=== PATIENT | male | born 1955 | race Caucasian/White ===

== ENCOUNTER 2019-01-09 06:23 | Emergency (ER) | payer OTHER ==
[~2019-01-09] VITALS: Ht 170.2 cm; Wt 61.7 kg
[~2019-01-09 06:23] MED LIST: ATREYE1 SL; CARV12.548 PO; CLOP75TA2 PO; COG1 PO; DEBROX OT; DOCU250C14 PO; HAL5 IM; LISI40TA4 PO; LORA10TA7 PO; MULT PO; NIFE-2 PO; OMEG500C3 PO; OMEP20CA10 PO; POTA10TA15 PO; SIMV40TA2 PO; ZINC56.7 TP; ZONI100C42 PO; [UNRECOGNIZED DRUG - REMARK]
[2019-01-09 06:35] VITALS: BP_SYST 158
[2019-01-09 08:25] VITALS: BP_SYST 129
[2019-01-14] MEDS ORDERED: ACET-73 PO (02:59)
== END 2019-01-09 08:23 | disposition home or self-care (01) ==
LOC: SED 06:23
DX: R09.89 Other specified symptoms and signs involving the circulatory and respiratory systems (principal); R06.02 Shortness of breath; F03.90 Unspecified dementia, unspecified severity, without behavioral disturbance, psychotic disturbance, mood disturbance, and anxiety; I10 Essential (primary) hypertension; Z79.01 Long term (current) use of anticoagulants; Z79.899 Other long term (current) drug therapy; Z88.0 Allergy status to penicillin; Z88.8 Allergy status to other drugs, medicaments and biological substances; Z86.79 Personal history of other diseases of the circulatory system
CPT/HCPCS: 71045; 99283

== ENCOUNTER 2019-08-06 11:46 | Inpatient (IN) | payer OTHER ==
[~2019-08-06] VITALS: Ht 167.6 cm; Wt 55.8 kg
[~2019-08-06 11:46] MED LIST changes: +ACET-73 PO; +ANT30 PO; -ATREYE1 SL; -CARV12.548 PO; -DEBROX OT; -HAL5 IM; -MULT PO; -OMEG500C3 PO; -OMEP20CA10 PO; +OMEP20CA11 PO; -ZINC56.7 TP; -[UNRECOGNIZED DRUG - REMARK]
[2019-08-06 11:47] VITALS: BP_SYST 135
--- NOTE | 2019-08-06 11:47 | NUR ---
Patient to ER bed 01 to gown for evaluation. Side rails up.
--- NOTE | 2019-08-06 11:49 | NUR ---
Patient arrived in the ED accompanied by his sister c/o difficulty swallowing, dragging his left foot, weakness that started yesterday at 1400. Denied any chest pain or shortness of breath. Denied any fevers, nausea, vomiting, or chills. Patient is alert and oriented x2, respirations even and unlabored, non-verbal, ambulating using a wheelchair. VSS, pain level 0/10. Sister at bedside. Informed of wait time. Instructed to notify ED staff for any changes in condition or worsening of symptoms. Patient verbalized understanding.
--- NOTE | 2019-08-06 11:56 | NUR ---
ECG done at bedside as ordered by Dr. Booth. Patient tolerated the procedure well. Report given to
[2019-08-06] MEDS ORDERED: NACL 0.9% 1,000 ML IV ONE (12:05)
--- NOTE | 2019-08-06 12:08 | NUR ---
ER Dr. Booth at bedside examining patient.
--- NOTE | 2019-08-06 12:10 | NUR ---
loader technician at bedside collecting blood specimen as ordered by Dr. Booth. Patient tolerated the procedure well.
[2019-08-06] MEDS ORDERED: ONDANSETRON HCL 4 MG/2 ML VIAL IVP ONE (12:15)
--- NOTE | 2019-08-06 12:27 | NUR ---
Administered Zofran IVP and NS as ordered by Dr. Booth. Patient tolerated the medication well. See eMAR for details.
--- NOTE | 2019-08-06 12:29 | NUR ---
Patient is taken to CT via gurney, in stable condition.
--- NOTE | 2019-08-06 12:40 | NUR ---
Patient is back from CT in stable condition.
[2019-08-06 12:58] LABS: ANION GAP 10 (5-15); CALCIUM 9.4 mg/dL (8.4-11.0); CHLORIDE 105 mmol/L (98-107); CREATININE 1.74 mg/dL (0.55-1.30); GLUCOSE 135 mg/dL (70-99); POTASSIUM 3.5 mmol/L (3.5-5.1); SODIUM SERUM 140 mmol/L (136-145); UREA NITROGEN, BLOOD 30 mg/dL (8-21)
[2019-08-06 13:03] LABS: GFR AFRICAN AMERICAN 51 mL/min (>90)
[2019-08-06 13:04] LABS: BASOPHILS % (AUTO) 0.8 % (0.0-2.0); EOSINOPHILS % (AUTO) 0.8 % (0.0-4.0); HEMATOCRIT 40.7 % (36-54); HEMOGLOBIN 13.6 g/dL (14.0-18.0); LYMPHOCYTES # (AUTO) 0.9 K/uL (1.0-5.5); LYMPHOCYTES % (AUTO) 16.8 % (20.5-51.5); MEAN CORPUSCULAR HEMOGLOBIN 32 pg (27-31); MEAN CORPUSCULAR HGB CONC 33 % (32-36); MEAN CORPUSCULAR VOLUME 95 fL (79.0-98.0); MONOCYTES # (AUTO) 0.9 K/uL (0.0-1.0); MONOCYTES % (AUTO) 16.5 % (1.7-9.3); NEUTROPHILS # (AUTO) 3.5 K/uL (1.8-7.7); NEUTROPHILS % (AUTO) 65.1 % (40.0-70.0); PLATELET COUNT (AUTO) 207 K/uL (130-430); RED BLOOD CELL COUNT(AUTO) 4.28 MIL/uL (4.2-6.2); RED CELL DISTRIBUTION WIDTH 13.4 % (9.0-15.0); WHITE BLOOD COUNT (AUTO) 5.4 K/uL (4.8-10.8)
[2019-08-06 13:05] LABS: PROTHROMBIN TIME 10.3 SECS (9.5-12.5)
[2019-08-06 13:15] LABS: ALANINE AMINOTRANSFERASE 26 U/L (12-78); ALBUMIN 3.6 g/dL (3.4-4.8); AMYLASE 65 U/L (0-100); ASPARTATE AMINOTRANSFERASE 47 U/L (10-37); LIPASE 148 U/L (73-393); TOTAL BILIRUBIN 0.3 mg/dL (0.0-1.0)
[2019-08-06 13:16] LABS: ALCOHOL, BLOOD < 3 mg/dL (<10)
[2019-08-06 13:37] LABS: CKMB RELATIVE INDEX 0.4 (0.0-2.9)
[2019-08-06 14:49] LABS: BILIRUBIN,URINE NEGATIVE (NEGATIVE); COLOR,URINE YELLOW (YELLOW); GLUCOSE,URINE NEGATIVE (NEGATIVE); KETONES,URINE NEGATIVE (NEGATIVE); LEUKOCYTE ESTERASE ,URINE 1+ (NEGATIVE); NITRITE, URINE POSITIVE (NEGATIVE); PROTEIN URINE 2+ (NEGATIVE); UROBILINOGEN,URINE 0.2 (0.2-1.0)
[2019-08-06 14:57] LABS: BLOOD, URINE TRACE (NEGATIVE); CLARITY/URINE HAZY (CLEAR)
[2019-08-06 15:10] LABS: BACTERIA,URINE MANY /HPF (None Seen); RBC,URINE 0-3 /HPF (0-3)
[2019-08-06 15:16] LABS: BARBITURATE, URINE NEGATIVE (NEG <=200); BENZODIAZEPINE, URINE NEGATIVE (NEG <=150); CANNABINOID, URINE NEGATIVE (NEG <=50); COCAINE, URINE NEGATIVE (NEG <=150); METHAMPHETAMINES SCREEN,URINE NEGATIVE (NEG <=500); OPIATE, URINE NEGATIVE (NEG <=100); PHENCYCLIDINE SCREEN,URINE NEGATIVE (NEG <=25); UR TRICYCLIC ANTIDEPRESSANTS NEGATIVE (NEG <=300); URINE AMPHETAMINE NEGATIVE (NEG <=500); URINE METHADONE NEGATIVE (NEG <=200); URINE OXYCODONE SCREEN NEGATIVE (NEG <=100); URINE PROPOXYPHENE SCREEN NEGATIVE (NEG <=300)
[2019-08-06] MEDS ORDERED: LEVOFLOXACIN 500 MG/D5W 100 ML IV ONE (15:30)
--- NOTE | 2019-08-06 16:40 | NUR ---
Received admitting orders from Dr. Viera.
[2019-08-06] MEDS ORDERED: NACL 0.9% 1,000 ML IV SCH (16:45)
--- NOTE | 2019-08-06 17:10 | NUR ---
ADMISSION NOTE Received patient from ER via gurheather, received report from RN. Patient admitted with diagnosis of . Patient oriented to hospital routine, call light, toileting and safety-patient verbalized understanding.
[2019-08-06 17:22] VITALS: BP_SYST 125
[2019-08-06 18:00] VITALS: BP_SYST 125
--- NOTE | 2019-08-06 18:00 | NUR ---
RN NOTE PT AWAKE, NON VERBAL BUT PT IS SMILING. NO ACUTE DISTRESS NOTED. IVF INFUSING WELL. CALL LIGHT WITHIN REACH, BED IN LOW AND LOCKED POSITION WITH BED ALARM ON.
--- NOTE | 2019-08-06 18:05 | NUR ---
Patient will be admitted to care of Dr. Viera. Admitted to Tele unit. Will go to room 135. Belongings list completed. Complete and up to date summary report printed. SBAR report given to OLE Thomas at bedside with opportunity for questions.
--- NOTE | 2019-08-06 18:46 | NUR ---
Swallow Eval Called Maegan speech therapist, dialed for ordered swallow eval. left voice message.
--- NOTE | 2019-08-06 18:51 | NUR ---
CLOSING NOTE PT RESTING QUIETLY, NO ACUTE DISTRESS NOTED, BREATHING EVEN AND UNLABORED. IVF INFUSING WELL. CALL LIGHT WITHIN REACH, BED IN LOW AND LOCKED POSITION WITH BED ALARM ON. ALL NEEDS MET THROUGHOUT SHIFT. WILL CONTINUE TO MONITOR UNTIL PT CARE IS ENDORSED TO PAPER SLITTER RN.
--- NOTE | 2019-08-06 19:15 | NUR ---
INITIAL NOTES: pt is awake, alert, confused, non verbal. no pain. not distress. pt vital sign are with in normal limit. assess pt. no skin breakdown. left sided weakness and paralysis due to stroke. pt is incontinent of bowel and bladder. ivf infusing to right forearm gauge 20- no sign of infiltration. clean pt and diaper remove and change to chux. reposition. needs attended. side rails up. low bed position. bed alarm on. call light in reach. will monitor.
[2019-08-06 20:00] VITALS: BP_SYST 140
--- NOTE | 2019-08-06 22:09 | NUR ---
pt's sister estefani came in to give the anti seizure medication. pt swallow medication ok. no sign of aspiration. needs attended at this time will monitor.
[2019-08-06] MEDS ORDERED: ACETAMINOPHEN 500 MG TABLET PO PRN (22:45)
[2019-08-06] MEDS: D5LR 1,000 ML IV SCH (23:15)
[2019-08-06] MEDS: PANTOPRAZOLE SODIUM 40 MG/VIAL (PROTONIX) IVP SCH (23:16)
[2019-08-06] MEDS ORDERED: PANTOPRAZOLE SODIUM 40 MG/VIAL (PROTONIX) ONE (23:19)
[2019-08-06 23:34] VITALS: BP_SYST 145
[2019-08-06] MEDS: TAMSULOSIN HCL 0.4 MG CAP PO SCH (23:43)
[2019-08-06] MEDS ORDERED: TAMSULOSIN HCL 0.4 MG CAP ONE (23:56)
--- NOTE | 2019-08-07 | NUR ---
pt call and ask for pudding. pt ate the whoel cup of pudding. no sign of aspiration. needs attended. safety on. will monitor.
[2019-08-07 01:21] VITALS: BP_SYST 128
[2019-08-07 01:24] VITALS: BP_SYST 122
--- NOTE | 2019-08-07 02:00 | NUR ---
sleeping, quietly, no distress, no pain. stable. ivf infusing well. side rails up. low bed position will monitor.
--- NOTE | 2019-08-07 03:40 | NUR ---
received call [facility]. dasilva, pt is positive for influenza a, negative for b, isolate pt and page dr. gilman.
--- NOTE | 2019-08-07 04:20 | NUR ---
PT IS AWAKE, ALERT. WATCHING TV. NON VERBAL. IVF INFUSING WELL. NO SOB. NOT DISTRESS, ON DROPLET ISOLATION. NEEDS ATTENDED. CALL LIGHT IN REACH. SIDE RAILS UP. LOW BED POSITION. BED ALARM ON. WILL MONITOR.
--- NOTE | 2019-08-07 05:50 | NUR ---
pt is awake, alert. not distress, no pain. ivf infusing well. clean pt and chux change, reposition with help of caitie padilla. droplet isolation. side rails up. bed alarm on. call light in reach. will monitor
[2019-08-07] MEDS: OSELTAMIVIR PHOSPHATE 75 MG CAPSULE PO SCH ×2 (06:41→22:00)
[2019-08-07 07:12] LABS: BASOPHILS % (AUTO) 0.6 % (0.0-2.0); EOSINOPHILS # (AUTO) 0.1 K/uL (0.0-0.4); EOSINOPHILS % (AUTO) 2.7 % (0.0-4.0); HEMATOCRIT 34.6 % (36-54); HEMOGLOBIN 11.8 g/dL (14.0-18.0); LYMPHOCYTES % (AUTO) 22.2 % (20.5-51.5); MEAN CORPUSCULAR HEMOGLOBIN 32 pg (27-31); MEAN CORPUSCULAR HGB CONC 34 % (32-36); MEAN CORPUSCULAR VOLUME 95 fL (79.0-98.0); MONOCYTES # (AUTO) 0.8 K/uL (0.0-1.0); MONOCYTES % (AUTO) 16.8 % (1.7-9.3); NEUTROPHILS # (AUTO) 2.7 K/uL (1.8-7.7); NEUTROPHILS % (AUTO) 57.7 % (40.0-70.0); PLATELET COUNT (AUTO) 185 K/uL (130-430); RED BLOOD CELL COUNT(AUTO) 3.64 MIL/uL (4.2-6.2); WHITE BLOOD COUNT (AUTO) 4.6 K/uL (4.8-10.8)
--- NOTE | 2019-08-07 07:30 | NUR ---
closing: pt is resting, no distress, no pain. no sob. ivf infusing well. clean and dry. stable. needs attended the whole shift. maintained on contact isolation. bedside report given to am rn.
[2019-08-07 07:40] LABS: ALBUMIN 2.9 g/dL (3.4-4.8); CALCIUM 8.3 mg/dL (8.4-11.0); CREATININE 1.24 mg/dL (0.55-1.30); PHOSPHORUS 3.2 mg/dL (2.7-4.5); POTASSIUM 3.3 mmol/L (3.5-5.1); TOTAL BILIRUBIN 0.3 mg/dL (0.0-1.0)
[2019-08-07] MEDS ORDERED: PANTOPRAZOLE SODIUM 40 MG TAB PO SCH (09:00)
[2019-08-07] MEDS ORDERED: LISINOPRIL 20 MG TABLET PO SCH (09:00)
[2019-08-07] MEDS ORDERED: POTASSIUM CHLORIDE 10 MEQ TAB.PRT.SR PO SCH (09:00)
[2019-08-07 09:03] LABS: CKMB RELATIVE INDEX 0.3 (0.0-2.9); CREATINE KINASE MB 3.2 ng/mL (0-3.6)
--- NOTE | 2019-08-07 09:46 | NUR ---
Nutrition Update Artemio Scale 17 noted. Pt admitted for ALOC, Dehydration Diet: Pureed BMI: 19.9 kg/m2 RD to follow per nutrition care standards.
[2019-08-07] MEDS: PANTOPRAZOLE SODIUM 40 MG/VIAL (PROTONIX) IVP SCH ×2 (09:54→21:57)
[2019-08-07] MEDS: MAG-AL HYDROX/SIMETH 30 ML UDC PO SCH ×3 (09:54→21:59)
[2019-08-07] MEDS: D5LR 1,000 ML IV SCH ×2 (09:54→20:36)
[2019-08-07] MEDS: LORATADINE 10 MG TABLET PO SCH (09:55)
[2019-08-07] MEDS: NIFEDIPINE 30 MG TAB.ER.24 PO SCH (09:55)
[2019-08-07] MEDS: CLOPIDOGREL BISULFATE 75 MG TABLET PO SCH (09:56)
[2019-08-07] MEDS: DOCUSATE SODIUM 250 MG CAPSULE PO SCH ×2 (09:56→22:00)
[2019-08-07] MEDS: BENZTROPINE MESYLATE 1 MG TABLET PO SCH ×2 (09:56→21:58)
[2019-08-07] MEDS: TAMSULOSIN HCL 0.4 MG CAP PO SCH ×2 (09:56→21:58)
[2019-08-07 13:14] VITALS: BP_SYST 141
--- NOTE | 2019-08-07 13:46 | NUR ---
DR HAIDER IN AND INFORMED THAT THE K LEVEL 3.3. WILL CHECK ON THE LABS. MEDICATIONS TAKEN ONE AT A TIME WITH APPLE SAUCE, TOLERATED WELL
[2019-08-07] MEDS ORDERED: POTASSIUM CHLORIDE 20 MEQ TAB.PRT.SR PO ONE (15:00)
[2019-08-07] MEDS: LEVOFLOXACIN 500 MG/D5W 100 ML IV SCH ×2 (15:00→15:52)
[2019-08-07] MEDS ORDERED: LEVOFLOXACIN 250 MG/D5W 50 ML IV SCH (15:00)
[2019-08-07] MEDS: POTASSIUM CHLORIDE 20 MEQ TAB.PRT.SR PO ONE ×2 (15:11→15:16)
[2019-08-07 16:48] VITALS: BP_SYST 137
--- NOTE | 2019-08-07 19:20 | NUR ---
INITIAL NOTES: pt is awake, alert, confused, pt is able to follow simple commands. no pain. not distress. pt vital sign are with in normal limit. pt is incontinent of bowel and bladder. ivf infusing to right forearm gauge 20- no sign of infiltration. pt is soiled with urine. clean pt, bed bath done. change linen, gown and chux. reposition. needs attended. side rails up. low bed position. bed alarm on. maintained on droplet isolation. call light in reach. will monitor.
[2019-08-07 20:03] VITALS: BP_SYST 144
[2019-08-07] MEDS: ZONISAMIDE 100 MG CAPSULE PO SCH (21:58)
[2019-08-07] MEDS: SIMVASTATIN 40 MG TABLET PO SCH (21:58)
[2019-08-07] MEDS: MIRTAZAPINE 15 MG TABLET PO SCH (22:00)
--- NOTE | 2019-08-07 22:04 | NUR ---
awake, alert. watching tv. stable, isolation. needs attended. call light with the pt.
--- NOTE | 2019-08-08 | NUR ---
still awake, alert. watching tv. stable, isolation. needs attended. call light with the pt. bed alarm on . low bed position side rails up.
[2019-08-08 01:28] VITALS: BP_SYST 149
--- NOTE | 2019-08-08 02:03 | NUR ---
sleeping, no sob. stable, clean and dry.
--- NOTE | 2019-08-08 03:51 | NUR ---
pt call and when ask, pt wants water. needs attended, stable. call light in reach. isolation.
[2019-08-08] MEDS: D5LR 1,000 ML IV SCH ×2 (05:01→17:30)
--- NOTE | 2019-08-08 05:45 | NUR ---
pt is awake, alert. soiled with urine, clean pt, change chux and gown, reposition. pt tolerate well. needs attended, call light in reach, side rails up. low bed position, bed alarm on, maintained on isolation.
--- NOTE | 2019-08-08 07:15 | NUR ---
closing: pt is awake, alert. no distress, no pain. no sob. ivf infusing well. clean and dry. stable. needs attended the whole shift. maintained on droplet isolation.call light in reach. bedside report given to am rn.
--- NOTE | 2019-08-08 07:21 | NUR ---
Opening Note received bedside SBAR report from night shift supervisor RN, patient resting in bed, respirations even and unlabored on room air, no acute distress noted, patient denies any pain, educated patient on use of call light and asked to call for assistance, patient verbalized understanding, call light in reach, bed in low and locked position, bed alarm on.
--- NOTE | 2019-08-08 07:40 | NUR ---
IV Catheter IV catheter to right forearm found in bed, catheter intact, no bleeding, educated patient on purpose and procedure for IV catheter placement, IV catheter placed to right wrist, 22G, flushes easily with blood return, patient tolerated well.
[2019-08-08 07:46] LABS: BASOPHILS % (AUTO) 0.8 % (0.0-2.0); EOSINOPHILS # (AUTO) 0.3 K/uL (0.0-0.4); EOSINOPHILS % (AUTO) 6.6 % (0.0-4.0); HEMATOCRIT 37.7 % (36-54); HEMOGLOBIN 12.9 g/dL (14.0-18.0); LYMPHOCYTES # (AUTO) 1.2 K/uL (1.0-5.5); LYMPHOCYTES % (AUTO) 22.5 % (20.5-51.5); MEAN CORPUSCULAR HEMOGLOBIN 32 pg (27-31); MEAN CORPUSCULAR HGB CONC 34 % (32-36); MEAN CORPUSCULAR VOLUME 94 fL (79.0-98.0); MONOCYTES # (AUTO) 0.7 K/uL (0.0-1.0); MONOCYTES % (AUTO) 14.1 % (1.7-9.3); NEUTROPHILS # (AUTO) 2.9 K/uL (1.8-7.7); PLATELET COUNT (AUTO) 219 K/uL (130-430); RED BLOOD CELL COUNT(AUTO) 4.02 MIL/uL (4.2-6.2); WHITE BLOOD COUNT (AUTO) 5.2 K/uL (4.8-10.8)
[2019-08-08 08:00] VITALS: BP_SYST 139
[2019-08-08 08:01] LABS: CALCIUM 8.6 mg/dL (8.4-11.0); CREATININE 1.19 mg/dL (0.55-1.30)
[2019-08-08 08:48] LABS: CKMB RELATIVE INDEX 0.3 (0.0-2.9); CREATINE KINASE MB 1.6 ng/mL (0-3.6)
[2019-08-08] MEDS: OSELTAMIVIR PHOSPHATE 75 MG CAPSULE PO SCH ×2 (09:16→22:06)
[2019-08-08] MEDS: MAG-AL HYDROX/SIMETH 30 ML UDC PO SCH ×3 (09:16→22:06)
[2019-08-08] MEDS: PANTOPRAZOLE SODIUM 40 MG/VIAL (PROTONIX) IVP SCH ×2 (09:16→22:04)
[2019-08-08] MEDS: TAMSULOSIN HCL 0.4 MG CAP PO SCH ×2 (09:16→22:05)
[2019-08-08] MEDS: CLOPIDOGREL BISULFATE 75 MG TABLET PO SCH (09:16)
[2019-08-08] MEDS: NIFEDIPINE 30 MG TAB.ER.24 PO SCH (09:17)
[2019-08-08] MEDS: BENZTROPINE MESYLATE 1 MG TABLET PO SCH ×2 (09:17→22:05)
[2019-08-08] MEDS: DOCUSATE SODIUM 250 MG CAPSULE PO SCH ×2 (09:17→22:06)
[2019-08-08] MEDS: LORATADINE 10 MG TABLET PO SCH (09:17)
--- NOTE | 2019-08-08 09:38 | NUR ---
RN Rounds patient resting in bed, respirations even and unlabored on room air, no acute distress noted, patient denies any pain.
[2019-08-08] MEDS ORDERED: POTASSIUM CHLORIDE 20 MEQ TAB.PRT.SR PO ONE (11:30)
--- NOTE | 2019-08-08 12:15 | NUR ---
Physician Rounds Dr. Viera at bedside examining patient.
--- NOTE | 2019-08-08 12:23 | NUR ---
Swallow Evaluation spoke with ST Issa, carol Issa swallow evaluation was completed and she recommends continuing patient on pureed diet, carol Issa she informed Dr. Viera.
--- NOTE | 2019-08-08 12:24 | NUR ---
S.T. SWALLOW EVAL SWALLOW EVAL COMPLETED. PT PRESENTS W/ GENERALLY FUNCTIONAL OROPHARYNGEAL SWALLOW FOR PUREE AND THIN/THICK LIQUIDS. NO S/S OF ASPIRATION. REC: CONTINUE PUREE DIET. THIN LIQUIDS OK. DR. HAIDER AND NURSE NANI NOTIFIED.
[2019-08-08 12:39] VITALS: BP_SYST 143
--- NOTE | 2019-08-08 13:29 | NUR ---
Dietitian Recommendations *Continue pureed diet per STRIPPER AND OPAQUER APPRENTICE and MD. *Adhere to food preferences per family request. Please see Nutritional Assessment for details. ELIGIO BERKOWITZ
--- NOTE | 2019-08-08 14:05 | NUR ---
Bedside commode patient requesting to use bedside commode, assisted patient to bedside commode, patient did not void or have BM, patients sister Leydi at bedside.
[2019-08-08] MEDS: LEVOFLOXACIN 500 MG/D5W 100 ML IV SCH (14:12)
--- NOTE | 2019-08-08 14:49 | NUR ---
SS NOTES/DCP: ICE PULLER was referred by CM to see patient for DCP and SSA. ICE PULLER spoke with sister, Leydi at bedside. Pt was in the bathroom at this time. Per Leydi, pt has been dependent with family for 12 years now. Pt is a and was diagnosed with PTSD and had 4 strokes in the past. Pt lives in between his two sisters, Dulce and Leydi. Pt is semi independent; able to feed self, clean self and walk with assistance. Pt utilizes a walker to ambulate short distances but owns a wc, shower chair and has bathroom bars. Pt primarily lives in a one tera home with 1 step to get to the front door. Pt's source of income is through the [employer] and has a conservator for his finances named Constantino. Per sister, pt goes to [facility] to get Haldol shot and therapy 1x/month. Pt has a history of substance use 30 years ago. Pt's PCP through the [employer] is Dr. Madhavi Sinclair, p: [phone], f: [phone] and is well-connected with [employer] [facility]. Pt has an advanced directive and Dulce Sarkar is his surrogate decision maker. Per Leydi, they would rather take the patient home and if HHS is indicated, they will go through his PCP for the referral. NINA Valentin informed of intent. No further SS needs identified but will remain available when needed.
--- NOTE | 2019-08-08 15:37 | NUR ---
Physical Therapy physical therapy at bedside working with patient, patient tolerating well.
[2019-08-08 16:31] VITALS: BP_SYST 143
--- NOTE | 2019-08-08 17:19 | NUR ---
RN Rounds patient resting in bed, respirations even and unlabored on room air, no acute distress noted, patient denies any pain.
--- NOTE | 2019-08-08 19:16 | NUR ---
Closing Note bedside SBAR report given to Juli RN, patient resting in bed, respirations even and unlabored on room air, no acute distress noted, educated patient on use of call light and asked to call for assistance, call light in reach, bed in low and locked position, bed alarm on, care endorsed to electric milkers installer RN.
--- NOTE | 2019-08-08 19:20 | NUR ---
OPENING NOTES RECEIVE REPORT FROM MORNING SHIFT NURSE. PATIENT AOX1. CALM AND COOPERATIVE. NO SIGNS OF RESPIRATORY DISTRESS NOTED. DENIES PAIN AND DISCOMFORT AT THIS TIME. SCD's OPERATING WELL. ON DROPLET PRECAUTION. IVF INFUSING WELL, PATENCY NOTED. BED LOCKED AND IN LOWEST POSITION. CALL LIGHT WITH IN REACH, PATIENT EDUCATED OT USE CALL LIGHT WHEN ASSISTANCE IS NEEDED, PATIENT UNABLE TO VERBALIZED UNDERSTANDING. PATIENT IS CONFUSED. SAFETY PRECAUTIONS IN PLACE. BED ALARM ON. WILL CONTINUE TO MONITOR PATIENT.
[2019-08-08 20:00] VITALS: BP_SYST 151
[2019-08-08] MEDS: SIMVASTATIN 40 MG TABLET PO SCH (22:04)
[2019-08-08] MEDS: MIRTAZAPINE 15 MG TABLET PO SCH (22:06)
[2019-08-08] MEDS: POTASSIUM CHLORIDE 20 MEQ TAB.PRT.SR PO SCH (22:06)
--- NOTE | 2019-08-08 22:06 | NUR ---
MED PASS Due medication given at this time, patient tolerated well. No signs of respiratory distress and discomfort noted. safety precautions in place. needs attended. Will continue to monitor patient.
[2019-08-08] MEDS: ZONISAMIDE 100 MG CAPSULE PO SCH (22:07)
--- NOTE | 2019-08-08 23:45 | NUR ---
RN ROUNDS PATIENT IS AWAKE, LYING QUIETLY IN BED. NO SIGNS OF RESPIRATORY DISTRESS AND DISCOMFORT NOTED. BREATHING EVEN AND UNLABORED. IVF INFUSING WELL, PATENCY NOTED. SAFETY PRECAUTIONS IN PLACE. WILL CONTINUE TO MONITOR PATIENT
[2019-08-09 00:25] VITALS: BP_SYST 153
--- NOTE | 2019-08-09 02:30 | NUR ---
RN ROUNDS PATIENT IS ASLEEP AT THIS TIME. NO SIGNS OF RESPIRATORY DISTRESS AND DISCOMFORT NOTED. BREATHING EVEN AND UNLABORED. SAFETY PRECAUTIONS IN PLACE. WILL CONTINUE TO MONITOR PATIENT
--- NOTE | 2019-08-09 04:57 | NUR ---
RN ROUNDS PATIENT IS ASLEEP AT THIS TIME. NO SIGNS OF RESPIRATORY DISTRESS AND DISCOMFORT NOTED. BREATHING EVEN AND UNLABORED. IVF INFUSING WELL, PATENCY NOTED. SAFETY PRECAUTIONS IN PLACE. WILL CONTINUE TO MONITOR PATIENT
--- NOTE | 2019-08-09 06:46 | NUR ---
CLOSING NOTES PATIENT ASLEEP AT THIS TIME. NO SIGNS OF RESPIRATORY DISTRESS AND DISCOMFORT NOTED. ON DROPLET PRECAUTION MAINTAINED THROUGHOUT THE SHIFT. IVF INFUSING WELL, PATENCY NOTED. BED LOCKED AND IN LOWEST POSITION. CALL LIGHT WITH IN REACH. SAFETY PRECAUTIONS IN PLACE. BED ALARM ON. BED LOCKED AND IN LOWEST POSITION. ALL NEEDS MET THROUGHOUT THE SHIFT. WILL CONTINUE TO MONITOR PATIENT UNTIL ENDORSE TO ONCOMING SHIFT NURSE FOR CONTINUITY OF CARE.
[2019-08-09 07:19] LABS: BASOPHILS % (AUTO) 0.5 % (0.0-2.0); CALCIUM 8.6 mg/dL (8.4-11.0); CREATININE 1.19 mg/dL (0.55-1.30); EOSINOPHILS # (AUTO) 0.3 K/uL (0.0-0.4); EOSINOPHILS % (AUTO) 5.9 % (0.0-4.0); HEMATOCRIT 35.5 % (36-54); HEMOGLOBIN 12.3 g/dL (14.0-18.0); LYMPHOCYTES # (AUTO) 1.2 K/uL (1.0-5.5); LYMPHOCYTES % (AUTO) 24.5 % (20.5-51.5); MEAN CORPUSCULAR HEMOGLOBIN 32 pg (27-31); MEAN CORPUSCULAR HGB CONC 35 % (32-36); MEAN CORPUSCULAR VOLUME 93 fL (79.0-98.0); MONOCYTES # (AUTO) 0.6 K/uL (0.0-1.0); MONOCYTES % (AUTO) 13.2 % (1.7-9.3); NEUTROPHILS # (AUTO) 2.7 K/uL (1.8-7.7); NEUTROPHILS % (AUTO) 55.9 % (40.0-70.0); PLATELET COUNT (AUTO) 204 K/uL (130-430); POTASSIUM 3.3 mmol/L (3.5-5.1); RED BLOOD CELL COUNT(AUTO) 3.81 MIL/uL (4.2-6.2); RED CELL DISTRIBUTION WIDTH 12.9 % (9.0-15.0); WHITE BLOOD COUNT (AUTO) 4.8 K/uL (4.8-10.8)
--- NOTE | 2019-08-09 07:20 | NUR ---
OPENING NOTES: RECEIVED BEDSIDE REPORT FROM NIGHT RNBRANDON, PATIENT ASLEEP IN BED, RESPIRATIONS EVEN, NON LABORED,BED IN LOW AND LOCKED POSITION, BED ALARM ON, CALL LIGHT WITH IN REACH.
[2019-08-09 08:00] VITALS: BP_SYST 155
[2019-08-09] MEDS: MAG-AL HYDROX/SIMETH 30 ML UDC PO SCH ×3 (08:22→21:13)
[2019-08-09] MEDS: POTASSIUM CHLORIDE 20 MEQ TAB.PRT.SR PO SCH ×2 (08:23→21:13)
[2019-08-09] MEDS: CLOPIDOGREL BISULFATE 75 MG TABLET PO SCH (08:23)
[2019-08-09] MEDS: TAMSULOSIN HCL 0.4 MG CAP PO SCH ×2 (08:23→21:13)
[2019-08-09] MEDS: PANTOPRAZOLE SODIUM 40 MG/VIAL (PROTONIX) IVP SCH ×2 (08:23→21:14)
[2019-08-09] MEDS: OSELTAMIVIR PHOSPHATE 75 MG CAPSULE PO SCH ×2 (08:24→21:14)
[2019-08-09] MEDS: BENZTROPINE MESYLATE 1 MG TABLET PO SCH ×2 (08:24→21:14)
[2019-08-09] MEDS: LORATADINE 10 MG TABLET PO SCH (08:25)
[2019-08-09] MEDS: DOCUSATE SODIUM 250 MG CAPSULE PO SCH ×2 (08:29→21:13)
[2019-08-09] MEDS: NIFEDIPINE 30 MG TAB.ER.24 PO SCH (08:30)
--- NOTE | 2019-08-09 09:30 | NUR ---
nurse notes: at bedside, patient awake, respirations even, non labored, changed chux, shelley care done. Addendum: 08/09/19 at 1120 by Luna Rice RN it was the sister at bedside, not the patients .
--- NOTE | 2019-08-09 11:05 | NUR ---
nurses note: patient incontinent of urine, changed bed linens, provided pericare, changed gown, repositioned, patient, patient tolerated well, no signs of acute distress
--- NOTE | 2019-08-09 11:26 | NUR ---
physician rounds Dr. Viera at bedside,
[2019-08-09] MEDS ORDERED: POTASSIUM CHLORIDE 20 MEQ TAB.PRT.SR PO ONE (12:00)
[2019-08-09] MEDS: D5LR 1,000 ML IV SCH (12:25)
[2019-08-09 12:35] VITALS: BP_SYST 143
--- NOTE | 2019-08-09 12:45 | NUR ---
NURSE NOTES: BEDSIDE WITH PATIENT, ASSISTING WITH EATING, TOLERATING WELL, NO OBVIOUS SIGNS OF DISTRESS, BED IN LOW AND LOCKED POSITION, BED ALARM ON, CALL LIGHT WITHIN REACH
--- NOTE | 2019-08-09 13:41 | NUR ---
NURSES NOTE FOUND PATIENT ATTEMPTING TO GET OUT OF BED, ASSISTED PATIENT TO BEDSIDE COMMODE, PATIENT VOIDED, CLEANED PATIENT, ASSISTED PATIENT TO BED, CALL LIGHT WITHIN REACH, BED IN LOW AND LOCKED POSITION, BED ALARM ON,EDUCATED PATIENT USE OF THE CALL LIGHT, PATIENT NODS HEAD YES FOR UNDERSTANDING.
--- NOTE | 2019-08-09 14:57 | NUR ---
Nursing note: found patient attempting to get out of bed, assisted patient to bedside commode, patient had large bowel movement, cleaned patient and returned to bed. Bed alarm on, bed in low and locked position, call light with in reach of patient
[2019-08-09] MEDS: LEVOFLOXACIN 500 MG/D5W 100 ML IV SCH (15:24)
[2019-08-09 17:00] VITALS: BP_SYST 153
--- NOTE | 2019-08-09 17:45 | NUR ---
nurse note: patient sitting in bed eating dinner, tolerating well, swallowing well.
--- NOTE | 2019-08-09 18:59 | NUR ---
nurse note: Patient incontinent of bladder, changed linens, cleaned patient, moisture barrier cream applied, changed gown, patient tolerated well.
--- NOTE | 2019-08-09 19:10 | NUR ---
OPENING NOTES RECEIVE REPORT FROM MORNING SHIFT NURSE.PATIENT RESTING IN BED, WATCHING TV. AOX1. NO SIGNS OF RESPIRATORY DISTRESS NOTED. DENIES PAIN AND DISCOMFORT AT THIS TIME. SCD's OPERATING WELL. ON DROPLET PRECAUTION. IVF INFUSING WELL, PATENCY NOTED. BED LOCKED AND IN LOWEST POSITION. CALL LIGHT WITH IN REACH, PATIENT EDUCATED OT USE CALL LIGHT WHEN ASSISTANCE IS NEEDED, PATIENT UNABLE TO VERBALIZED UNDERSTANDING. PATIENT IS CONFUSED. SAFETY PRECAUTIONS IN PLACE. BED ALARM ON. WILL CONTINUE TO MONITOR PATIENT.
--- NOTE | 2019-08-09 19:10 | NUR ---
closing notes: SBAR given bedside to night RNJuli, patient resting in bed, no signs of distress, respirations even non labored, bed in low and locked position, bed alarm on, call light within reach, care endorsed to night time RN.
[2019-08-09 20:00] VITALS: BP_SYST 137
[2019-08-09] MEDS: ZONISAMIDE 100 MG CAPSULE PO SCH (21:13)
[2019-08-09] MEDS: SIMVASTATIN 40 MG TABLET PO SCH (21:14)
[2019-08-09] MEDS: MIRTAZAPINE 15 MG TABLET PO SCH (21:14)
--- NOTE | 2019-08-09 21:14 | NUR ---
MED PASS Due medication given at this time, patient tolerated well. No signs of respiratory distress and discomfort noted. Safety precautions in place. Needs attended. Will continue to monitor patient.
--- NOTE | 2019-08-09 23:25 | NUR ---
RN ROUNDS PATIENT IS ASLEEP AT THIS TIME. NO SIGNS OF RESPIRATORY DISTRESS AND DISCOMFORT NOTED. BREATHING EVEN AND UNLABORED. IVF INFUSING WELL. SAFETY PRECAUTIONS IN PLACE. WILL CONTINUE TO MONITOR PATIENT
--- NOTE | 2019-08-10 00:11 | NUR ---
Patient is standing trying to walk to commode and did not use call light. Bed alarm on, and no distress observed. Patient is back in bed resting, call light within reach, bed alarm on, bed at lowest position. Addendum: 08/11/19 at 0139 by Raul Motley RN WRONG TIME, PLEASE DISREGARD
[2019-08-10 01:00] VITALS: BP_SYST 143
--- NOTE | 2019-08-10 04:35 | NUR ---
SEIZURE PATIENT HAD A SEIZURE FOR LESS THAN 2 MINUTE. BREANNA PURCELL AND RN STAYS AT BED SIDE. TIMED SEIZURE, ENSURE PATIENTS SAFETY. SEIZURE PADS IN PLACE. SAFETY PRECAUTIONS IN PLACE. WILL CONTINUE TO MONITOR PATIENT.
--- NOTE | 2019-08-10 04:38 | NUR ---
RE ASSESSMENT AFTER SEIZURE PATIENT IS RESPONSIVE AND CALM AT THIS TIME. NO SIGNS OF RESPIRATORY DISTRESS NOTED. VITAL SIGNS WITHIN NORMAL LIMITS. DENIES PAIN AT THIS TIME. NO INJURY NOTED. REPOSITION PATIENT FOR COMFORT. SAFETY PRECAUTIONS IN PLACE. SEIZURE PADS IN PLACE. WILL CONTINUE TO MONITOR PATIENT.
--- NOTE | 2019-08-10 06:41 | NUR ---
CLOSING NOTES PATIENT ASLEEP AT THIS TIME. NO SIGNS OF RESPIRATORY DISTRESS AND DISCOMFORT NOTED. ON DROPLET PRECAUTION MAINTAINED THROUGHOUT THE SHIFT. IVF INFUSING WELL, PATENCY NOTED. SEIZURE PADS IN PLACE. NEEDS ATTENDED. BED LOCKED AND IN LOWEST POSITION. CALL LIGHT WITH IN REACH. SAFETY PRECAUTIONS IN PLACE. BED ALARM ON. BED LOCKED AND IN LOWEST POSITION. ALL NEEDS MET THROUGHOUT THE SHIFT. WILL CONTINUE TO MONITOR PATIENT UNTIL ENDORSE TO ONCOMING SHIFT NURSE FOR CONTINUITY OF CARE.
[2019-08-10 07:08] LABS: BASOPHILS % (AUTO) 0.5 % (0.0-2.0); EOSINOPHILS # (AUTO) 0.3 K/uL (0.0-0.4); EOSINOPHILS % (AUTO) 4.4 % (0.0-4.0); HEMATOCRIT 38.6 % (36-54); HEMOGLOBIN 13.4 g/dL (14.0-18.0); LYMPHOCYTES # (AUTO) 1.4 K/uL (1.0-5.5); LYMPHOCYTES % (AUTO) 19.1 % (20.5-51.5); MEAN CORPUSCULAR HEMOGLOBIN 32 pg (27-31); MEAN CORPUSCULAR HGB CONC 35 % (32-36); MEAN CORPUSCULAR VOLUME 93 fL (79.0-98.0); MONOCYTES # (AUTO) 0.8 K/uL (0.0-1.0); MONOCYTES % (AUTO) 10.2 % (1.7-9.3); NEUTROPHILS # (AUTO) 4.9 K/uL (1.8-7.7); NEUTROPHILS % (AUTO) 65.8 % (40.0-70.0); PLATELET COUNT (AUTO) 212 K/uL (130-430); RED BLOOD CELL COUNT(AUTO) 4.16 MIL/uL (4.2-6.2); RED CELL DISTRIBUTION WIDTH 12.5 % (9.0-15.0); WHITE BLOOD COUNT (AUTO) 7.4 K/uL (4.8-10.8)
[2019-08-10 07:48] LABS: CALCIUM 8.8 mg/dL (8.4-11.0); CREATININE 1.24 mg/dL (0.55-1.30); POTASSIUM 3.4 mmol/L (3.5-5.1)
[2019-08-10 08:00] VITALS: BP_SYST 142
[2019-08-10] MEDS: TAMSULOSIN HCL 0.4 MG CAP PO SCH ×2 (09:58→21:35)
[2019-08-10] MEDS: OSELTAMIVIR PHOSPHATE 75 MG CAPSULE PO SCH ×2 (09:58→21:35)
[2019-08-10] MEDS: POTASSIUM CHLORIDE 20 MEQ TAB.PRT.SR PO SCH ×2 (09:58→21:35)
[2019-08-10] MEDS: DOCUSATE SODIUM 250 MG CAPSULE PO SCH ×2 (09:58→21:35)
[2019-08-10] MEDS: LORATADINE 10 MG TABLET PO SCH (09:58)
[2019-08-10] MEDS: MAG-AL HYDROX/SIMETH 30 ML UDC PO SCH ×3 (09:58→21:36)
[2019-08-10] MEDS: CLOPIDOGREL BISULFATE 75 MG TABLET PO SCH (09:58)
[2019-08-10] MEDS: BENZTROPINE MESYLATE 1 MG TABLET PO SCH ×2 (09:59→21:36)
[2019-08-10] MEDS: NIFEDIPINE 30 MG TAB.ER.24 PO SCH (10:01)
[2019-08-10] MEDS: PANTOPRAZOLE SODIUM 40 MG/VIAL (PROTONIX) IVP SCH ×2 (10:02→21:34)
--- NOTE | 2019-08-10 10:42 | NUR ---
PHYSICAL THERAPY CO-SIGN The Physical Therapy Progress Notes documented by Reference Test Clerk have been reviewed. Reviewed/Co-Signed by: Aaron Jimenez PT Documentation Done by: KLEVER CHO PTA Addendum: 08/10/19 at 1043 by Aaron Jimenze PT Amended: Links added.
[2019-08-10] MEDS: D5LR 1,000 ML IV SCH (10:50)
--- NOTE | 2019-08-10 11:17 | NUR ---
K LEVEL 3.4, CALL DR HAIDER FOR ORDERS
[2019-08-10] MEDS ORDERED: POTASSIUM CHLORIDE 20 MEQ TAB.PRT.SR PO ONE (11:30)
--- NOTE | 2019-08-10 12:02 | NUR ---
PHYSICAL THERAPY CO-SIGN The Physical Therapy Progress Notes documented by Assembling Inspector have been reviewed. Reviewed/Co-Signed by: Aaron Jimenez PT Documentation Done by: KLEVER CHO PTA Addendum: 08/10/19 at 1203 by Aaron Jimenez PT Amended: Links added.
[2019-08-10 13:12] VITALS: BP_SYST 156
[2019-08-10] MEDS: LEVOFLOXACIN 500 MG/D5W 100 ML IV SCH (14:27)
--- NOTE | 2019-08-10 14:37 | NUR ---
Veronika HARDY ORDERED GIVEN .SISTER IN AND ASKED ABOUT THE PATIENT,S ORDERS AND INFORMED
[2019-08-10] MEDS ORDERED: LISINOPRIL 20 MG TABLET PO ONE (16:45)
--- NOTE | 2019-08-10 16:58 | NUR ---
DR BAER IN AND INFORMED ABOUT THE K LEVEL THAT IS LOW. WITH ORDERS AND CARRIED OUT
[2019-08-10 16:59] VITALS: BP_SYST 136
--- NOTE | 2019-08-10 19:30 | NUR ---
OPENING NOTES Patient is resting, eyes open, no signs of acute respiratory distress observed, seizure pads in place, Droplet precautions in place for Influenza A. IVF running, dressings c/d/i. IV site infiltrated. Will obtain IV access. SCDS on, call light within reach, bed alarm on, bed at lowest position. Oriented patient to plan of care and use of call light. Patient unsuccessfully can display usage of call light, will be doing rounds and continue to monitor.
[2019-08-10 20:00] VITALS: BP_SYST 141
--- NOTE | 2019-08-10 21:30 | NUR ---
IV RE-INSERTION: Complaining of pain to IV site. Restarted on right forearm. Successful after 1 attempt. Will observe for any signs of infiltration.
[2019-08-10] MEDS: MIRTAZAPINE 15 MG TABLET PO SCH (21:35)
[2019-08-10] MEDS: SIMVASTATIN 40 MG TABLET PO SCH (21:36)
[2019-08-10] MEDS: ZONISAMIDE 100 MG CAPSULE PO SCH (21:36)
--- NOTE | 2019-08-10 22:45 | NUR ---
Incontinence care provided, patient is resting, eating chocolate pudding, no signs of distress observed. Will continue to monitor.
[2019-08-11] VITALS: BP_SYST 146
--- NOTE | 2019-08-11 00:11 | NUR ---
Patient is standing trying to walk to commode and did not use call light. Bed alarm on, and no distress observed. Patient is back in bed resting, call light within reach, bed alarm on, bed at lowest position.
--- NOTE | 2019-08-11 02:05 | NUR ---
Patient is standing, regardless of bed alarm, steady gait, looking for pin for his hat. No signs of distress observed at this time, assisted to commode, linens changed. Will continue to monitor
--- NOTE | 2019-08-11 04:11 | NUR ---
Patient is pointing to the commode, assisted to the commode with assistance. Patient is back in bed, no distress observed. Call light within reach, bed alarm on bed at lowest position. Will continue to monitor.
--- NOTE | 2019-08-11 07:16 | NUR ---
CLOSING NOTES Patient is resting, eyes closed, sleeping on side, no signs of acute respiratory distress observed, seizure pads in place, Droplet precautions was enforced throughout shift. IV site patent, dressings c/d/i. Will obtain IV access. SCDS on, call light within reach, bed alarm on, bed at lowest position. All needs met throughout shift. Will endorse care to oncoming shift.
--- NOTE | 2019-08-11 07:30 | NUR ---
received patient in bed asleep. patient awake x 1. confused. lungs bilaterally clear. abdomen soft and non distended. has iv access on the rt forearm #22. saline lock. patent/dry. bed low position, alarmed and locked. call lights within reach. still on droplet isolation. no sob nor pain noted. vitals signs stable. afebrile
[2019-08-11 07:56] LABS: CALCIUM 8.9 mg/dL (8.4-11.0); CREATININE 1.23 mg/dL (0.55-1.30); POTASSIUM 3.4 mmol/L (3.5-5.1)
--- NOTE | 2019-08-11 08:30 | NUR ---
eating breakfast by himself. on upright position. hob elevated. no sob nor pain noted.
[2019-08-11 08:45] VITALS: BP_SYST 142
[2019-08-11] MEDS ORDERED: LISINOPRIL 20 MG TABLET PO SCH (09:00)
[2019-08-11] MEDS: PANTOPRAZOLE SODIUM 40 MG/VIAL (PROTONIX) IVP SCH (09:39)
[2019-08-11] MEDS: MAG-AL HYDROX/SIMETH 30 ML UDC PO SCH (09:40)
[2019-08-11] MEDS: POTASSIUM CHLORIDE 20 MEQ TAB.PRT.SR PO SCH (09:41)
[2019-08-11] MEDS: OSELTAMIVIR PHOSPHATE 75 MG CAPSULE PO SCH (09:41)
[2019-08-11] MEDS: CLOPIDOGREL BISULFATE 75 MG TABLET PO SCH (09:41)
[2019-08-11] MEDS: TAMSULOSIN HCL 0.4 MG CAP PO SCH (09:41)
[2019-08-11] MEDS: DOCUSATE SODIUM 250 MG CAPSULE PO SCH (09:42)
[2019-08-11] MEDS: LORATADINE 10 MG TABLET PO SCH (09:42)
[2019-08-11] MEDS: BENZTROPINE MESYLATE 1 MG TABLET PO SCH (09:42)
[2019-08-11] MEDS: NIFEDIPINE 30 MG TAB.ER.24 PO SCH (09:43)
--- NOTE | 2019-08-11 10:00 | NUR ---
due medication given to the patient one by one tablet with water. hob elevated. no signs of aspiration noted. able to swallow tablet without difficulty.
--- NOTE | 2019-08-11 11:00 | NUR ---
TURN TO SIDES. MADE COMFORTABLE.
[2019-08-11] MEDS ORDERED: TAMS0.4C96 PO (11:07)
[2019-08-11] MEDS ORDERED: LACT1CAP61 PO (11:12)
[2019-08-11] MEDS ORDERED: LEVO250T58 PO (11:12)
[2019-08-11] MEDS ORDERED: POTASSIUM CHLORIDE 20 MEQ TAB.PRT.SR PO ONE (11:15)
--- NOTE | 2019-08-11 12:00 | NUR ---
Dr Viera came and prescription given to the sister. instructions on the medication given by nurse ALESSANDRA HANDY.
--- NOTE | 2019-08-11 12:14 | NUR ---
DC Planning: Per lauryn Salazar s/w pt's Antonia regarding HH need. Antonia declined the HH services, stated the pt is at his base line and is able to walk 25 feet using FWW with contact guard. DR Viera made awre and ok to cancel the HH order.
[2019-08-11 12:29] VITALS: BP_SYST 128
[2019-08-11 13:20] VITALS: BP_SYST 128
--- NOTE | 2019-08-11 14:39 | NUR ---
patient left in stable condition with the sister Antonia Olea pick him up to go home. discharge summary instructions given to the sister and signed. scdh i d band and iv access removed. chemical mixer removed. instructed to follow up engagement lead in two weeks time, as stated by the sister Antonia.
[2019-08-12] MEDS ORDERED: LISINOPRIL 20 MG TABLET PO SCH (09:00)
== END 2019-08-11 14:39 | disposition home or self-care (01) | DRG 70 ==
LOC: SED 11:46 → STU 16:32
PROVIDERS: ADMIT Internal Medicine; ATTEND Internal Medicine
DX: G93.41 Metabolic encephalopathy (principal); N17.0 Acute kidney failure with tubular necrosis; N39.0 Urinary tract infection, site not specified; M62.82 Rhabdomyolysis; I69.354 Hemiplegia and hemiparesis following cerebral infarction affecting left non-dominant side; E44.1 Mild protein-calorie malnutrition; Z68.1 Body mass index [BMI] 19.9 or less, adult; F02.80 Dementia in other diseases classified elsewhere, unspecified severity, without behavioral disturbance, psychotic disturbance, mood disturbance, and anxiety; E86.0 Dehydration; R62.7 Adult failure to thrive; J11.1 Influenza due to unidentified influenza virus with other respiratory manifestations; B96.20 Unspecified Escherichia coli [E. coli] as the cause of diseases classified elsewhere; K21.0 Gastro-esophageal reflux disease with esophagitis; G40.909 Epilepsy, unspecified, not intractable, without status epilepticus; E78.5 Hyperlipidemia, unspecified; E87.6 Hypokalemia; I71.4 Abdominal aortic aneurysm, without rupture; K57.90 Diverticulosis of intestine, part unspecified, without perforation or abscess without bleeding; N28.1 Cyst of kidney, acquired; I10 Essential (primary) hypertension; G20 Parkinson's disease; Z88.0 Allergy status to penicillin; Z88.8 Allergy status to other drugs, medicaments and biological substances; Z79.899 Other long term (current) drug therapy
CPT/HCPCS: 36415; 70450-TC; 71045; 76770; 80048; 80053; 80061; 80307; 81000-TC; 82150-TC; 82550-TC; 82553-TC; 83605; 83690-TC; 83735-TC; 83880; 84100-TC; 84484; 85025; 85610-TC; 85730-TC; 86710; 87040-TC; 87086; 87186-TC; 92610-GN; 93978; 96361; 96365; 96375; 97110-GP; 97112-GP; 97530-GP; 99285; C9113; G0378; G0481; G0482; G9035; J1956; J2405; J7120

== ENCOUNTER 2021-07-24 09:50 | Emergency (ER) | payer OTHER, SELFPAY ==
[~2021-07-24] VITALS: Ht 170.2 cm; Wt 59.0 kg
[2021-07-24 09:50] VITALS: BP_SYST 144
[~2021-07-24 09:50] MED LIST changes: +APIX2.5T PO; +LACT1CAP61 PO; +LEVO250T43 PO; +LEVO500T90 PO; +LISI40TA13 PO; -LISI40TA4 PO; -LORA10TA7 PO; -NIFE-2 PO; +NIFE-55 PO; -OMEP20CA11 PO; +OMEP20CA15 PO; +TAMS0.4C96 PO
--- NOTE | 2021-07-24 09:50 | NUR ---
BROUGHT BACK TO BED #7 AND TRIAGED. REPORT GIVEN TO J LUIS
--- NOTE | 2021-07-24 10:13 | NUR ---
ER at bedside examining patient.
--- NOTE | 2021-07-24 10:13 | NUR ---
pt. bib sister with concerns of pain and brusing to left buttocks post a fall yesterday, pt. is non verbal with hx. of 3 CVA, uses a walker; sister states yesterday am while getting OOB with walker pt. lost balance and fell into a sitting position was able to get up and go on about his day but today she noticed large bruising and pt. moaned when sat on toliet so she brought him in to be evaluated, on exam pt. moans when moving for assessment
[2021-07-24] MEDS ORDERED: traMADol HCL HCL 50 MG TABLET (ULTRAM) PO ONE (10:15)
[2021-07-24] MEDS ORDERED: TRAM50TA PO (11:07)
[2021-07-24 11:26] VITALS: BP_SYST 127
--- NOTE | 2021-07-24 11:30 | NUR ---
Patient and pts. sister/caregiver given written and verbal discharge instructions and verbalizes understanding. ER discussed with patient/family the results and treatment provided. Patient in stable condition. ID arm band removed. Rx of tramadol given. Patient educated on pain management and to follow up with PMD. Pain Scale 3. Opportunity for questions provided and answered. Medication side effect fact sheet provided.
[2021-07-25] MEDS ORDERED: ACET325T53 PO (18:28)
== END 2021-07-24 11:30 | disposition home or self-care (01) ==
LOC: SED 09:50
DX: S30.0XXA Contusion of lower back and pelvis, initial encounter (principal); K21.9 Gastro-esophageal reflux disease without esophagitis; I10 Essential (primary) hypertension; Z88.0 Allergy status to penicillin; Z88.1 Allergy status to other antibiotic agents; W19.XXXA Unspecified fall, initial encounter; Y93.9 Activity, unspecified; Y92.9 Unspecified place or not applicable; Y99.9 Unspecified external cause status
CPT/HCPCS: 72170-TC; 73502; 99284

== ENCOUNTER 2021-07-25 15:45 | Emergency (ER) | payer OTHER, SELFPAY ==
[~2021-07-25] VITALS: Ht 170.2 cm; Wt 59.0 kg
[~2021-07-25 15:45] MED LIST changes: +TRAM50TA PO
[2021-07-25 17:08] VITALS: BP_SYST 130
--- NOTE | 2021-07-25 17:23 | NUR ---
BIB DAUGHTER FOR SEIZURE ACTIVITY EARLIER TODAY. TO BED 1 12 LEAD DONE. SEIZURE PADS ON
[2021-07-25 17:40] LABS: BASOPHILS # (AUTO) 0.1 K/uL (0.0-0.2); BASOPHILS % (AUTO) 0.5 % (0.0-2.0); EOSINOPHILS # (AUTO) 0.2 K/uL (0.0-0.4); EOSINOPHILS % (AUTO) 1.6 % (0.0-4.0); HEMATOCRIT 36.4 % (36-54); HEMOGLOBIN 12.4 g/dL (14.0-18.0); LYMPHOCYTES # (AUTO) 1.2 K/uL (1.0-5.5); LYMPHOCYTES % (AUTO) 11.7 % (20.5-51.5); MEAN CORPUSCULAR HEMOGLOBIN 32 pg (27-31); MEAN CORPUSCULAR HGB CONC 34 % (32-36); MEAN CORPUSCULAR VOLUME 94 fL (79.0-98.0); MONOCYTES # (AUTO) 0.9 K/uL (0.0-1.0); MONOCYTES % (AUTO) 8.4 % (1.7-9.3); NEUTROPHILS # (AUTO) 7.9 K/uL (1.8-7.7); NEUTROPHILS % (AUTO) 77.8 % (40.0-70.0); PLATELET COUNT (AUTO) 213 K/uL (130-430); RED BLOOD CELL COUNT(AUTO) 3.89 MIL/uL (4.2-6.2); RED CELL DISTRIBUTION WIDTH 13.5 % (9.0-15.0); WHITE BLOOD COUNT (AUTO) 10.2 K/uL (4.8-10.8)
[2021-07-25 18:07] LABS: INR 0.9 (0.80-1.20); PROTHROMBIN TIME 9.9 SECS (9.5-12.5)
[2021-07-25 18:08] LABS: CALCIUM 8.9 mg/dL (8.4-11.0); CREATININE 1.46 mg/dL (0.55-1.30); POTASSIUM 3.6 mmol/L (3.5-5.1)
[2021-07-25 18:21] LABS: ALBUMIN 3.6 g/dL (3.4-4.8); TOTAL BILIRUBIN 0.3 mg/dL (0.0-1.0)
[2021-07-25] MEDS ORDERED: ACET325T53 PO (18:28)
[2021-07-25 18:40] VITALS: BP_SYST 133
--- NOTE | 2021-07-25 18:42 | NUR ---
Patient given written and verbal discharge instructions and verbalizes understanding. HUDSON cho MD discussed with patient the results and treatment provided. Patient in stable condition. ID arm band removed. IV catheter removed intact and dressing applied, no active bleeding. Rx of tylenol given. Patient educated on pain management and to follow up with PMD. Pain Scale 0. Opportunity for questions provided and answered. Medication side effect fact sheet provided.
== END 2021-07-25 18:40 | disposition home or self-care (01) ==
LOC: SED 15:45
DX: G40.909 Epilepsy, unspecified, not intractable, without status epilepticus (principal); I10 Essential (primary) hypertension; K21.9 Gastro-esophageal reflux disease without esophagitis; Z88.0 Allergy status to penicillin; Z88.1 Allergy status to other antibiotic agents; Z88.8 Allergy status to other drugs, medicaments and biological substances
CPT/HCPCS: 36415; 70450-TC; 72192-TC; 76376; 80053; 85025; 85610-TC; 85730-TC; 93005; 99284; 99285

== ENCOUNTER 2022-11-20 18:58 | Inpatient (IN) | payer OTHER ==
[~2022-11-20] VITALS: Ht 162.6 cm; Wt 58.5 kg
[~2022-11-20 18:58] MED LIST changes: +ACET325T53 PO; +LEVO-62 PO; -LEVO250T43 PO; +LEVO250T73 PO; -LEVO500T90 PO; +SIMV-345 PO; -SIMV40TA2 PO
[2022-11-20 19:10] VITALS: BP_SYST 173; PULSE 68; RESP 18; TEMP 96.9; O2SAT 98
[2022-11-20 20:18] LABS: BASOPHILS # (AUTO) 0.1 K/uL (0.0-0.2); BASOPHILS % (AUTO) 0.6 % (0.0-2.0); EOSINOPHILS # (AUTO) 0.6 K/uL (0.0-0.4); EOSINOPHILS % (AUTO) 7.1 % (0.0-4.0); HEMATOCRIT 37.5 % (36-54); HEMOGLOBIN 12.9 g/dL (14.0-18.0); LYMPHOCYTES # (AUTO) 1.5 K/uL (1.0-5.5); LYMPHOCYTES % (AUTO) 18.4 % (20.5-51.5); MEAN CORPUSCULAR HEMOGLOBIN 32 pg (27-31); MEAN CORPUSCULAR HGB CONC 34 % (32-36); MEAN CORPUSCULAR VOLUME 93 fL (79.0-98.0); MONOCYTES # (AUTO) 0.9 K/uL (0.0-1.0); MONOCYTES % (AUTO) 11.1 % (1.7-9.3); NEUTROPHILS # (AUTO) 5.1 K/uL (1.8-7.7); NEUTROPHILS % (AUTO) 62.8 % (40.0-70.0); PLATELET COUNT (AUTO) 204 K/uL (130-430); RED BLOOD CELL COUNT(AUTO) 4.02 MIL/uL (4.2-6.2); RED CELL DISTRIBUTION WIDTH 13.2 % (9.0-15.0); WHITE BLOOD COUNT (AUTO) 8.1 K/uL (4.8-10.8)
[2022-11-20 20:33] LABS: ANION GAP 7 (5-15); CHLORIDE 101 mmol/L (98-107); CREATININE 2.14 mg/dL (0.55-1.30); GFR AFRICAN AMERICAN 40 mL/min (>90); GLUCOSE 115 mg/dL (70-99); UREA NITROGEN, BLOOD 23 mg/dL (8-21)
[2022-11-20 20:40] LABS: ALANINE AMINOTRANSFERASE 16 U/L (12-78); ALBUMIN 3.2 g/dL (3.4-4.8); ASPARTATE AMINOTRANSFERASE 9 U/L (10-37); TOTAL BILIRUBIN 0.2 mg/dL (0.0-1.0); VALPROIC ACID 42 ug/mL (50-100)
[2022-11-20] MEDS ORDERED: cloNIDine HCL 0.1 MG TABLET PO ONE (21:30)
[2022-11-20] MEDS ORDERED: LORazepam 2 MG/ML VIAL IVP PRN (22:00)
[2022-11-20] MEDS ORDERED: MAGNESIUM SULFATE 50 ML IV PRN (22:00)
[2022-11-20] MEDS ORDERED: ACETAMINOPHEN 325 MG TABLET PO PRN (22:00)
[2022-11-20] MEDS ORDERED: POTASSIUM CHLORIDE 20 MEQ TAB.PRT.SR PO PRN (22:00)
[2022-11-20] MEDS ORDERED: NALOXONE HCL 0.4 MG/ML AMP (NARCAN) IVP PRN ×2 (22:00)
[2022-11-20] MEDS ORDERED: DOCUSATE SODIUM 100 MG CAPSULE PO PRN (22:00)
[2022-11-20] MEDS ORDERED: MORPHINE 2 MG/ML INJ. SYRINGE IVP PRN ×2 (22:00)
[2022-11-20] MEDS ORDERED: ZOLPIDEM TARTRATE 5 MG TABLET PO PRN (22:00)
[2022-11-20] MEDS ORDERED: cloNIDine HCL 0.2 MG TABLET PO PRN (22:00)
[2022-11-20] MEDS ORDERED: ONDANSETRON HCL 4 MG/2 ML VIAL IVP PRN (22:00)
[2022-11-20] MEDS ORDERED: MUPIROCIN 2% TOPICAL OINTMENT 22 GM NS PRN (22:00)
[2022-11-20 22:47] VITALS: BP_SYST 136; PULSE 84; RESP 20; TEMP 98.2
[2022-11-21] VITALS (23 sets, daily range): BP systolic 114–188; PULSE 36–88; RESP 13–26; TEMP 97–98.5; O2SAT 93–100
[2022-11-21] MEDS: NACL 0.9% 1,000 ML IV SCH ×3 (01:09→20:53)
[2022-11-21] MEDS: hydrALAZINE HCL 10 MG TABLET PO SCH ×4 (01:18→20:54)
[2022-11-21 05:49] LABS: BASOPHILS # (AUTO) 0.1 K/uL (0.0-0.2); BASOPHILS % (AUTO) 0.9 % (0.0-2.0); EOSINOPHILS # (AUTO) 0.7 K/uL (0.0-0.4); EOSINOPHILS % (AUTO) 8.9 % (0.0-4.0); HEMATOCRIT 34.6 % (36-54); LYMPHOCYTES # (AUTO) 1.5 K/uL (1.0-5.5); LYMPHOCYTES % (AUTO) 20.5 % (20.5-51.5); MEAN CORPUSCULAR HEMOGLOBIN 33 pg (27-31); MEAN CORPUSCULAR HGB CONC 35 % (32-36); MEAN CORPUSCULAR VOLUME 94 fL (79.0-98.0); MONOCYTES # (AUTO) 0.7 K/uL (0.0-1.0); NEUTROPHILS # (AUTO) 4.4 K/uL (1.8-7.7); NEUTROPHILS % (AUTO) 59.7 % (40.0-70.0); PLATELET COUNT (AUTO) 195 K/uL (130-430); RED BLOOD CELL COUNT(AUTO) 3.69 MIL/uL (4.2-6.2); WHITE BLOOD COUNT (AUTO) 7.4 K/uL (4.8-10.8)
[2022-11-21 06:15] LABS: CREATININE 1.71 mg/dL (0.55-1.30)
[2022-11-21] MEDS ORDERED: MAGNESIUM SULFATE 50 ML IV ONE (07:45)
[2022-11-21] MEDS ORDERED: DOPamine PREMIX 250 ML IV PRN (07:45)
[2022-11-21] MEDS: APIXABAN 2.5 MG TABLET PO SCH ×2 (08:09→20:04)
[2022-11-21] MEDS ORDERED: BENZTROPINE MESYLATE 1 MG TABLET PO SCH (09:00)
[2022-11-21] MEDS ORDERED: NIFEdipine 30 MG TAB.ER.24 PO ONE (10:00)
[2022-11-21] MEDS: DIVALPROEX SODIUM 500 MG TAB.SR.24H (DEPAKOTE ER) PO SCH (20:05)
[2022-11-22] VITALS (7 sets, daily range): BP systolic 116–165; PULSE 65–81; RESP 17–18; TEMP 97.1–99.6; O2SAT 93–98
[2022-11-22 05:09] LABS: BASOPHILS # (AUTO) 0.1 K/uL (0.0-0.2); BASOPHILS % (AUTO) 0.5 % (0.0-2.0); EOSINOPHILS # (AUTO) 0.5 K/uL (0.0-0.4); EOSINOPHILS % (AUTO) 5.1 % (0.0-4.0); HEMATOCRIT 37.5 % (36-54); LYMPHOCYTES # (AUTO) 1.1 K/uL (1.0-5.5); LYMPHOCYTES % (AUTO) 10.8 % (20.5-51.5); MEAN CORPUSCULAR HEMOGLOBIN 32 pg (27-31); MEAN CORPUSCULAR HGB CONC 35 % (32-36); MEAN CORPUSCULAR VOLUME 93 fL (79.0-98.0); MONOCYTES # (AUTO) 0.8 K/uL (0.0-1.0); MONOCYTES % (AUTO) 7.7 % (1.7-9.3); NEUTROPHILS # (AUTO) 7.9 K/uL (1.8-7.7); NEUTROPHILS % (AUTO) 75.9 % (40.0-70.0); PLATELET COUNT (AUTO) 198 K/uL (130-430); RED BLOOD CELL COUNT(AUTO) 4.04 MIL/uL (4.2-6.2); WHITE BLOOD COUNT (AUTO) 10.4 K/uL (4.8-10.8)
[2022-11-22] MEDS: hydrALAZINE HCL 10 MG TABLET PO SCH ×2 (05:23→13:20)
[2022-11-22 05:29] LABS: CALCIUM 7.8 mg/dL (8.4-11.0); CREATININE 1.4 mg/dL (0.55-1.30)
[2022-11-22] MEDS: APIXABAN 2.5 MG TABLET PO SCH ×2 (08:22→21:12)
[2022-11-22] MEDS ORDERED: NIFEdipine 30 MG TAB.ER.24 PO SCH (09:00)
[2022-11-22] MEDS: NACL 0.9% 1,000 ML IV SCH (11:30)
[2022-11-22 13:49] LABS: BILIRUBIN,URINE NEGATIVE (NEGATIVE); BLOOD, URINE NEGATIVE (NEGATIVE); CLARITY/URINE CLEAR (CLEAR); COLOR,URINE YELLOW (YELLOW); GLUCOSE,URINE NEGATIVE (NEGATIVE); KETONES,URINE NEGATIVE (NEGATIVE); LEUKOCYTE ESTERASE ,URINE NEGATIVE (NEGATIVE); NITRITE, URINE NEGATIVE (NEGATIVE); PROTEIN URINE 2+ (NEGATIVE); UROBILINOGEN,URINE 0.2 (0.2-1.0)
[2022-11-22 14:11] LABS: BACTERIA,URINE None Seen /HPF (None Seen); RBC,URINE NONE SEEN /HPF (0-3); WBC,URINE 0-3 /HPF (0-3)
[2022-11-22] MEDS: hydrALAZINE HCL 25 MG TABLET PO SCH (21:11)
[2022-11-22] MEDS: DIVALPROEX SODIUM 500 MG TAB.SR.24H (DEPAKOTE ER) PO SCH (21:11)
[2022-11-23 00:19] VITALS: BP_SYST 153; PULSE 64; RESP 16; TEMP 98.8; O2SAT 97
[2022-11-23] MEDS: hydrALAZINE HCL 25 MG TABLET PO SCH ×2 (05:10→14:13)
[2022-11-23] MEDS: NACL 0.9% 1,000 ML IV SCH ×2 (05:10→12:52)
[2022-11-23 07:37] LABS: BASOPHILS % (AUTO) 0.5 % (0.0-2.0); EOSINOPHILS # (AUTO) 0.5 K/uL (0.0-0.4); EOSINOPHILS % (AUTO) 5.8 % (0.0-4.0); HEMATOCRIT 38.5 % (36-54); HEMOGLOBIN 13.2 g/dL (14.0-18.0); LYMPHOCYTES # (AUTO) 1.5 K/uL (1.0-5.5); LYMPHOCYTES % (AUTO) 17.7 % (20.5-51.5); MEAN CORPUSCULAR HEMOGLOBIN 32 pg (27-31); MEAN CORPUSCULAR HGB CONC 34 % (32-36); MEAN CORPUSCULAR VOLUME 93 fL (79.0-98.0); MONOCYTES # (AUTO) 0.9 K/uL (0.0-1.0); MONOCYTES % (AUTO) 10.5 % (1.7-9.3); NEUTROPHILS # (AUTO) 5.5 K/uL (1.8-7.7); NEUTROPHILS % (AUTO) 65.5 % (40.0-70.0); PLATELET COUNT (AUTO) 191 K/uL (130-430); RED BLOOD CELL COUNT(AUTO) 4.13 MIL/uL (4.2-6.2); RED CELL DISTRIBUTION WIDTH 13.1 % (9.0-15.0); WHITE BLOOD COUNT (AUTO) 8.3 K/uL (4.8-10.8)
[2022-11-23 08:00] VITALS: BP_SYST 167; PULSE 60; RESP 16; TEMP 97.8; O2SAT 94
[2022-11-23 08:03] LABS: CREATININE 1.29 mg/dL (0.55-1.30)
[2022-11-23] MEDS: APIXABAN 2.5 MG TABLET PO SCH (08:31)
[2022-11-23 10:47] VITALS: O2SAT 96
[2022-11-23] MEDS ORDERED: lisinopriL 20 MG TABLET PO ONE (12:45)
[2022-11-23 12:47] VITALS: BP_SYST 168; PULSE 73; RESP 18; TEMP 98.7; O2SAT 98
[2022-11-23] MEDS ORDERED: HYDR-4038 PO (14:23)
[2022-11-23 15:00] VITALS: BP_SYST 141; PULSE 74; RESP 15; TEMP 98.5; O2SAT 94
[2022-11-23 16:13] VITALS: BP_SYST 157; PULSE 62; RESP 17; TEMP 98.2; O2SAT 98
[2022-11-24] MEDS ORDERED: lisinopriL 20 MG TABLET PO SCH (09:00)
== END 2022-11-23 17:57 | disposition home or self-care (01) | DRG 308 ==
LOC: SED 18:58 → STU 21:25 → SIC 11-21 06:41 → STU 11-21 22:08
PROVIDERS: ADMIT General Practice; ATTEND General Practice
DX: I49.9 Cardiac arrhythmia, unspecified (principal); N17.0 Acute kidney failure with tubular necrosis; I69.354 Hemiplegia and hemiparesis following cerebral infarction affecting left non-dominant side; I16.0 Hypertensive urgency; E83.51 Hypocalcemia; R47.1 Dysarthria and anarthria; G20 Parkinson's disease; F02.80 Dementia in other diseases classified elsewhere, unspecified severity, without behavioral disturbance, psychotic disturbance, mood disturbance, and anxiety; E78.5 Hyperlipidemia, unspecified; G40.909 Epilepsy, unspecified, not intractable, without status epilepticus; I10 Essential (primary) hypertension; Z88.0 Allergy status to penicillin; Z88.8 Allergy status to other drugs, medicaments and biological substances; Z79.1 Long term (current) use of non-steroidal anti-inflammatories (NSAID); Z79.899 Other long term (current) drug therapy
CPT/HCPCS: 36415; 71045; 76770; 80048; 80053; 80164; 81000; 83037; 83735; 84443; 84484; 85025; 93005; 99291; 99292; G0378; J1265; J3475

== ENCOUNTER 2023-05-30 20:05 | Emergency (ER) | payer OTHER ==
[~2023-05-30 20:05] MED LIST changes: -ACET-73 PO; -LEVO-62 PO; -LEVO250T73 PO; -POTA10TA15 PO
[2023-05-30 20:16] VITALS: BP_SYST 156; PULSE 82; RESP 20; TEMP 97; O2SAT 96
[2023-05-30 20:40] VITALS: BP_SYST 154; PULSE 74; RESP 16; TEMP 97.1; O2SAT 98
== END 2023-05-30 21:08 | disposition home or self-care (01) ==
LOC: SED 20:05
DX: S70.02XA Contusion of left hip, initial encounter (principal); I10 Essential (primary) hypertension; K21.9 Gastro-esophageal reflux disease without esophagitis; Z88.0 Allergy status to penicillin; Z88.1 Allergy status to other antibiotic agents; Z79.899 Other long term (current) drug therapy; W18.39XA Other fall on same level, initial encounter; Y93.89 Activity, other specified; Y92.89 Other specified places as the place of occurrence of the external cause; Y99.8 Other external cause status
CPT/HCPCS: 73502; 99283